=== PATIENT | male | born 1935 | race Caucasian/White ===

== ENCOUNTER 2019-09-10 10:55 | Inpatient (IN) | payer MEDICARE, MEDICAID ==
[~2019-09-10] VITALS: Ht 177.8 cm; Wt 92.5 kg
[2019-09-10 11:29] LABS: BASOPHILS 0.1 % (0-2); EOSINOPHILS 0.7 % (0-7); HEMATOCRIT 38.3 % (42.0-54.0); HEMOGLOBIN 12.1 g/dL (13.5-17.5); IMMATURE GRANULOCYTES 0.2 % (0-5); LYMPHOCYTES 12.6 % (15-50); MCH 21.8 pg (26.0-34.0); MCHC 31.6 g/dL (31.0-37.0); MEAN PLATELET VOLUME 8.3 fL (7.4-10.4); MONOCYTES 13.8 % (2-11); NEUTROPHILS 72.6 % (40-80); PLATELET COUNT 214 10x3/uL (130-400); RBC 5.55 10x6/uL (4.20-6.10); RDW 16.9 % (11.5-14.5)
[2019-09-10 11:44] LABS: CALC OSMOLALITY 278 mosm/kg (275-300); CALCIUM 8.2 mg/dL (8.5-10.1); CARBON DIOXIDE 27.9 mmol/L (21.0-32.0); CHLORIDE - SERUM 101 mmol/L (98-107); CREATININE - SERUM 1.1 mg/dL (0.6-1.3); GLUCOSE 111 mg/dL (74-106); POTASSIUM - SERUM 3.8 mmol/L (3.5-5.1); SODIUM 138 mmol/L (136-145); UREA NITROGEN 19 mg/dL (7-18); eGFR NON AFRICAN AMERICAN 68 mL/min (90-120)
[2019-09-10 12:01] LABS: ALBUMIN 3.3 g/dL (3.4-5.0); ALKALINE PHOSPHATASE 68 U/L (46-116); ALT (SGPT) 15 U/L (10-68); BILIRUBIN - TOTAL 1.07 mg/dL (0.2-1.3); CKMB 0.9 U/L (0.0-3.6); CREATINE KINASE 60 UL (21-232); PROTEIN - SERUM 7.2 g/dL (6.4-8.2); TROPONIN-I < 0.017 ng/mL (0.000-0.060)
[2019-09-10 12:02] LABS: APTT 38.3 SECONDS (22.8-39.4); INR 1.19 (0.85-1.17); PROTIME 14.6 SECONDS (11.6-15.0)
[2019-09-10 12:13] VITALS: BP 116/65
--- NOTE | 2019-09-10 12:40 | NUR ---
TRANSFER FROM ER BY W/C. JEFINTED TO ROOM. CALL LIGHT IN REACH. WILL CONT. PLAN OF CARE.
[2019-09-10] MEDS ORDERED: ELIQUIS2.5 MG PO (13:03)
[2019-09-10] MEDS ORDERED: DURAGESIC1 PATCH .4 TRANSDERM (13:03)
[2019-09-10] MEDS ORDERED: KLONOPIN0.5 MG PO (13:04)
[2019-09-10] MEDS ORDERED: LEXAPRO20 MG PO (13:04)
[2019-09-10] MEDS ORDERED: FUROSEMIDE20 MG PO (13:04)
[2019-09-10] MEDS ORDERED: PROTONIX40 MG PO (13:05)
[2019-09-10] MEDS ORDERED: HYDROCODON-ACE1 EAC2 (13:05)
[2019-09-10] MEDS ORDERED: PLAVIX75 MG PO (13:05)
[2019-09-10] MEDS ORDERED: LEVOTHYROXINE125 MCG PO (13:06)
[2019-09-10 13:11] VITALS: BP 116/65; BMI 34.5
[2019-09-10 16:25] LABS: % SATURATION 9 % (15-55); IRON 20 ug/dl (35-150); TOTAL IRON BIND CAPACITY 218 ug/dl (260-445); UNSAT IRON BIND CAPACITY 198 ug/dl (150-375)
[2019-09-10 17:21] LABS: MAGNESIUM - SERUM 2.2 mg/dL (1.8-2.4)
[2019-09-10 17:47] VITALS: BP 99/48
--- NOTE | 2019-09-10 19:30 | NUR ---
REPORT AND INITIAL ROUNDS COMPLETED. PT RESTING IN BED WITH EYES CLOSED. RESPS EVEN/NONLABORED. NO DISTRESS. PACED ON TELEMETRY. PIV SALINE LOCKED TO RIGHT A/C. FALL PRECAUTIONS IN PLACE. CPOC.
[2019-09-10 20:00] VITALS: BP 112/49
--- NOTE | 2019-09-10 22:44 | NUR ---
RESTING IN BED. 80 PACED PER TELEMETRY. NO DISTRESS. CPOC.
[2019-09-11] VITALS: BP 104/66
--- NOTE | 2019-09-11 01:48 | NUR ---
MORE AWAKE NOW THAT BEGINNING OF SHIFT. PACEMAKER/80 PER TELEMETRY. CARE FOR INCONTINENCE PROVIDED. FALL PRECAUTIONS IN PLACE. CPOC.
[2019-09-11 04:00] VITALS: BP 123/66
[2019-09-11 06:29] LABS: BASOPHILS 0 % (0-2); EOSINOPHILS 0 % (0-7); HEMATOCRIT 37.5 % (42.0-54.0); IMMATURE GRANULOCYTES 0.4 % (0-5); LYMPHOCYTES 5.7 % (15-50); MCV 68.7 fL (80.0-100.0); MEAN PLATELET VOLUME 8.7 fL (7.4-10.4); MONOCYTES 2.3 % (2-11); NEUTROPHILS 91.6 % (40-80); PLATELET COUNT 236 10x3/uL (130-400); RBC 5.46 10x6/uL (4.20-6.10); RDW 16.9 % (11.5-14.5); WBC 14.1 10x3/uL (4.8-10.8)
--- NOTE | 2019-09-11 06:35 | NUR ---
RESTING IN BED WITH NO DISTRESS. INSTRUCTED THAT URINE SPECIMEN IS NEEDED AND FOR PT TO LET STAFF KNOW WHEN HE VOIDS. PT VOICED UNDERSTANDING.
[2019-09-11 06:56] LABS: ALBUMIN 2.8 g/dL (3.4-5.0); BILIRUBIN - TOTAL 0.59 mg/dL (0.2-1.3); CALCIUM 8.7 mg/dL (8.5-10.1); CARBON DIOXIDE 26.2 mmol/L (21.0-32.0); CREATININE - SERUM 1.1 mg/dL (0.6-1.3); MAGNESIUM - SERUM 2.1 mg/dL (1.8-2.4); POTASSIUM - SERUM 4.2 mmol/L (3.5-5.1)
--- NOTE | 2019-09-11 07:15 | NUR ---
ASSESSMENT DONE DENIES NEEDS
[2019-09-11 08:42] VITALS: BP 113/46
[2019-09-11 14:05] VITALS: BP 89/40
--- NOTE | 2019-09-11 16:09 | NUR ---
I have reviewed this patient and I concur with the Shift Assessment completed by the Licensed Practical Nurse today this shift.
[2019-09-11 16:20] VITALS: BP 99/53
--- NOTE | 2019-09-11 19:29 | NUR ---
RECEIVED BEDSIDE REPORT. PATIENT RESTING COMFORTABLY IN BED. RESPIRATIONS ARE EVEN AND UNLABORED. NO S/S DISTRESS. NO C/O PAIN. CALL LIGHT WITHIN REACH. WILL CPOC.
[2019-09-11 20:00] VITALS: BP 133/74
[2019-09-12] VITALS (7 sets, daily range): BP systolic 98–129; BP diastolic 52–96
--- NOTE | 2019-09-12 03:54 | NUR ---
URINE OBTAINED AND TAKEN TO LAB
[2019-09-12 04:00] LABS: APPEARANCE CLEAR (CLEAR); BILIRUBIN NEGATIVE (NEGATIVE); COLOR YELLOW (YELLOW); GLUCOSE 500 mg/dL (NEGATIVE); KETONE NEGATIVE (NEGATIVE); NITRITE NEGATIVE (NEGATIVE); PROTEIN NEGATIVE (NEGATIVE); SPECIFIC GRAVITY 1.015 (1.005-1.020); UROBILINOGEN NORMAL (NORMAL)
[2019-09-12 05:39] LABS: BASOPHILS 0 % (0-2); EOSINOPHILS 0 % (0-7); HEMATOCRIT 36.1 % (42.0-54.0); HEMOGLOBIN 11.3 g/dL (13.5-17.5); IMMATURE GRANULOCYTES 0.2 % (0-5); LYMPHOCYTES 5.7 % (15-50); MCH 21.4 pg (26.0-34.0); MCHC 31.3 g/dL (31.0-37.0); MCV 68.5 fL (80.0-100.0); MEAN PLATELET VOLUME 8.3 fL (7.4-10.4); MONOCYTES 3.9 % (2-11); NEUTROPHILS 90.2 % (40-80); PLATELET COUNT 232 10x3/uL (130-400); RBC 5.27 10x6/uL (4.20-6.10); RDW 16.8 % (11.5-14.5); WBC 15.5 10x3/uL (4.8-10.8)
[2019-09-12 05:58] LABS: ANION GAP 11.2 mmol/L (8-16); CALCIUM 8.7 mg/dL (8.5-10.1); CARBON DIOXIDE 28.4 mmol/L (21.0-32.0); CREATININE - SERUM 1.1 mg/dL (0.6-1.3); MAGNESIUM - SERUM 2.3 mg/dL (1.8-2.4); POTASSIUM - SERUM 4.6 mmol/L (3.5-5.1)
--- NOTE | 2019-09-12 07:39 | NUR ---
RECEIVED PT SITTING ON SIDE OF BED WITH UPD IN PROGRESS AAOX4 AT THIS TIME DENIES ANY NEEDS OR DISCOMFORT OR NEEDS AT THIS TIME
--- NOTE | 2019-09-12 17:05 | NUR ---
OT NOTE: PT C/O DIZZINESS. NURSING AWARE. PT COMPLETED UB HYGIENE AND GROOMING TASKS WITH MIN A. PT COMPLETED EOB SITTING WITH SBA. PT COMPLETED UE AROM EXS. [phone] THANK YOU,MAGEN PALACIOS
--- NOTE | 2019-09-12 20:21 | NUR ---
RECEIVED BEDSIDE REPORT. PATIENT IS ALERT AND ORIENTED, RESTING COMFORTABLY IN BED. RESPIRATIONS ARE EVEN AND UNLABORED. NO S/S OF DISTRESS. NO C/OPAIN. CALL LIGHT WITHIN REACH. WILL CPOC.
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
--- NOTE | 2019-09-13 | NUR ---
PATIENT APPEARS TO BE SLEEPING. RESPIRATIONS ARE EVEN AND UNLABORED. NO S/S OF DISTRESS. NO C/OPAIN. CALL LIGHT WITHIN REACH. WILL CPOC.
--- NOTE | 2019-09-13 03:02 | NUR ---
PATIENT APPEARS TO BE SLEEPING. RESPIRATIONS ARE EVEN AND UNLABORED. NO S/S OF DISTRESS. NO C/OPAIN. CALL LIGHT WITHIN REACH. WILL CPOC.
[2019-09-13 03:50] VITALS: BP 138/68
[2019-09-13 04:00] VITALS: BP 127/68
[2019-09-13 05:30] LABS: BASOPHILS 0 % (0-2); EOSINOPHILS 0 % (0-7); IMMATURE GRANULOCYTES 0.2 % (0-5); LYMPHOCYTES 11.3 % (15-50); MCH 21.6 pg (26.0-34.0); MCHC 31.4 g/dL (31.0-37.0); MCV 68.6 fL (80.0-100.0); MEAN PLATELET VOLUME 8.4 fL (7.4-10.4); MONOCYTES 8.9 % (2-11); NEUTROPHILS 79.6 % (40-80); PLATELET COUNT 220 10x3/uL (130-400); RDW 16.7 % (11.5-14.5)
[2019-09-13 05:54] LABS: WBC 11.4 10x3/uL (4.8-10.8)
[2019-09-13 05:59] LABS: ANION GAP 11.7 mmol/L (8-16); CALCIUM 8.6 mg/dL (8.5-10.1); CARBON DIOXIDE 28.5 mmol/L (21.0-32.0); CREATININE - SERUM 1.1 mg/dL (0.6-1.3); MAGNESIUM - SERUM 2.3 mg/dL (1.8-2.4); POTASSIUM - SERUM 4.2 mmol/L (3.5-5.1)
--- NOTE | 2019-09-13 08:30 | NUR ---
HAS TAKEN HIS OWN HOME MEDS THIS AM. STATES HE HAS NOT DONE THAT PRIOR TO THIS MORNING. EXPLAINED TO HIM NOT TO DO THAT AGAIN, THAT WE WOULD BE GIVING HIS MEDS, AND THAT WE NEEDED TO LOCK UP HIS PILL BOX. STATES HE WILL NOT DO THAT AGAIN AND REFUSES TO LET ME LOCK UP HIS PILL BOX.
--- NOTE | 2019-09-13 09:58 | NUR ---
UP AMBULATING HALLWAY WITH PT ASSIST.
--- NOTE | 2019-09-13 10:10 | NUR ---
DR. PIZANO GAVE ME THE ORDER TO HOLED ELIQUIS AND PLAVIX SO HE COULD HAVE A THORICENTESIS. EXPLAINED TO THE PATEINT THAT WI WERE GOIING TO HOLD THOSE TWO MEDS FOR POSSIBLE PROCEDURE. HE STATES OK. CEREAL CHEMIST NOTIFIED OF PILL BOX IN ROOM AND TOOK OWN MEDS THIS AM. SHE SPEAKS TO HIM AND HE BECOMES ANGRY STATING HE WILL NOT TAKE HES HOME MEDS FROM PILL BOX AND CONT TO REFUSE TO LET US LOCK THEM UP. RANGE AID ALSO NOTIFIED.
[2019-09-13 10:13] VITALS: BP 117/63
--- NOTE | 2019-09-13 11:32 | NUR ---
OT NOTE: PT DOING VERY WELL TODAY. STATED THAT HE FELT BETTER. REPORTED THAT HE FELL LAST NIGHT.. DID NOT REMEMBER IF HE WAS ATTEMPTING TO GO TO BATHROOM OR JUST WHAT HE WAS DOING WHEN HE FELL. PERFORMED BED MOB IWTH MIN ASSIST. ABLE TO WASH FACE, HANDS, AND UPPER BODY WITH WASHCLOTH AND SET UP. MIN ASSIST WITH CLOTHING MGMT; MIN ASSIST TO MAXINE GOWN. SIT TO STAND WITH WALKER AND MIN ASSIST. AMB WITH WALKER APPROX 30 FT TO IMPROVE FUNCTIONAL ENDURANCE. BACK TO BED WITH MIN ASSIST. ANTHONY GRIFFITH, OTR/L [phone]
[2019-09-13 14:25] VITALS: BP 105/52
[2019-09-13 17:05] VITALS: BP 127/73
--- NOTE | 2019-09-13 17:06 | NUR ---
OT NOTE: PT COMPLETED BED MOB WITH MIN A. PT COMPLETED ADL MOB WITH RW WITH CGA. PT COMPLETED HAIR GROOMING WITH SET UP. PT COMPLETED UE AROM AX. [phone] THANK YOU, MAGEN PALACIOS
--- NOTE | 2019-09-13 19:36 | NUR ---
RECEIVED BEDSIDE REPORT. PATIENT IS ALERT AND ORIENTED, RESTING COMFORTABLY IN BED. RESPIRATIONS ARE EVEN AND UNLABORED. NO S/S OF DISTRESS. NO C/O PAIN. CALL LIGHT WITHIN REACH. WILL CPOC.
[2019-09-13 21:48] VITALS: BP 128/74
[2019-09-14 04:30] VITALS: BP 107/57; BP 97/49
[2019-09-14 05:06] LABS: BASOPHILS 0 % (0-2); HEMATOCRIT 36.5 % (42.0-54.0); HEMOGLOBIN 11.3 g/dL (13.5-17.5); IMMATURE GRANULOCYTES 0.3 % (0-5); LYMPHOCYTES 20.7 % (15-50); MCH 21.3 pg (26.0-34.0); MCV 68.9 fL (80.0-100.0); MEAN PLATELET VOLUME 8.6 fL (7.4-10.4); PLATELET COUNT 205 10x3/uL (130-400)
[2019-09-14 05:07] LABS: WBC 7.2 10x3/uL (4.8-10.8)
[2019-09-14 05:30] LABS: CALC OSMOLALITY 283 mosm/kg (275-300); CALCIUM 8.4 mg/dL (8.5-10.1); CARBON DIOXIDE 28.1 mmol/L (21.0-32.0); CHLORIDE - SERUM 105 mmol/L (98-107); GLUCOSE 113 mg/dL (74-106); MAGNESIUM - SERUM 2.4 mg/dL (1.8-2.4); POTASSIUM - SERUM 3.7 mmol/L (3.5-5.1); SODIUM 140 mmol/L (136-145); UREA NITROGEN 25 mg/dL (7-18); eGFR NON AFRICAN AMERICAN 76 mL/min (90-120)
[2019-09-14 09:05] VITALS: BP 110/55
--- NOTE | 2019-09-14 10:31 | NUR ---
INFORMED PT OF NEED FOR STOOL SAMPLE, PROVIDED PT WITH COLLECTION CUP, PT WILL NOTIFY NURSE OR UNIFORMER WHEN SAMPLE IS READY.
--- NOTE | 2019-09-14 14:45 | NUR ---
PT REFUSED UPDRAFT TX
--- NOTE | 2019-09-14 14:48 | NUR ---
PT RESTING COMFORTABLY IN BED, DENIES ANY NEEDS AT THIS TIME. NAD NOTED, CALL LIGHT IN REACH, WILL CONTINUE TO MONIOTOR.
[2019-09-14 16:00] VITALS: BP 112/72
[2019-09-14 18:28] VITALS: BP 125/86
[2019-09-14 20:00] VITALS: BP 107/57
[2019-09-15 00:05] VITALS: BP 94/56
[2019-09-15 04:36] VITALS: BP 116/77
[2019-09-15 05:22] LABS: BASOPHILS 0.1 % (0-2); HEMATOCRIT 40.1 % (42.0-54.0); HEMOGLOBIN 12.8 g/dL (13.5-17.5); IMMATURE GRANULOCYTES 0.7 % (0-5); LYMPHOCYTES 24.3 % (15-50); MCH 21.6 pg (26.0-34.0); MCHC 31.9 g/dL (31.0-37.0); MCV 67.6 fL (80.0-100.0); MEAN PLATELET VOLUME 8.4 fL (7.4-10.4); MONOCYTES 10.4 % (2-11); NEUTROPHILS 62.5 % (40-80); PLATELET COUNT 201 10x3/uL (130-400); RBC 5.93 10x6/uL (4.20-6.10); RDW 16.6 % (11.5-14.5); WBC 7.4 10x3/uL (4.8-10.8)
[2019-09-15 05:31] LABS: ANION GAP 11.7 mmol/L (8-16); CALCIUM 8.7 mg/dL (8.5-10.1); CREATININE - SERUM 1.2 mg/dL (0.6-1.3); MAGNESIUM - SERUM 2.3 mg/dL (1.8-2.4); POTASSIUM - SERUM 3.7 mmol/L (3.5-5.1)
--- NOTE | 2019-09-15 06:00 | NUR ---
PT HAS RESTED THROUGH THE NIGHT. IV TO RIGHT A/C PATENT. IV ABT GIVEN ORDERED. NO DISTRESS. NO CHANGE FROM INITIAL SHIFT ASSESSMENT. REPORT TO ONCOMING NURSE. CPOC.
[2019-09-15 08:19] VITALS: BP 111/80
--- NOTE | 2019-09-15 08:31 | NUR ---
AM MEDS GIVEN AT THIS TIME. PT UP TO SIDE OF BED, EATING BREAKFAST, DENIES ANY NEEDS AT THIS TIME. RT UPPER ARM IV SL. CALL LIGHT IN REACH, NAD NOTED, WILL CONTINUE TO MONITOR.
[2019-09-15 11:48] VITALS: BP 119/71
[2019-09-15 16:44] VITALS: BP 102/66
--- NOTE | 2019-09-15 18:27 | NUR ---
RT UPPER IV LEAKING. D/C IV WITH CATHETER TIP INTACT. X1 ATTEMPT TO START NEW IV, WAS UNSUCCESSFUL. WILL HAVE CHARGE NURSE TRY AND START NEW IV.
--- NOTE | 2019-09-15 19:20 | NUR ---
RECEIVED REPORT, WILL ASSUME CARE OF PT, DENIES ANY NEEDS AT THIS TIME, IV-INFUSING IRON, WHEN DONE WILL HANG CLEOCIN,WILL KEEP NPO AFTER MIDNIGHT FOR POSSIABLE THORACENTESIS, BED IS LOW, SRX2, CALL LIGHT IN REACH, WILL CONTINUE PLAN OF CARE
[2019-09-15 20:00] VITALS: BP 125/67
[2019-09-16 04:00] VITALS: BP 92/52
[2019-09-16 06:42] LABS: BASOPHILS 0.2 % (0-2); EOSINOPHILS 2.3 % (0-7); HEMATOCRIT 42.2 % (42.0-54.0); HEMOGLOBIN 13.7 g/dL (13.5-17.5); IMMATURE GRANULOCYTES 1.3 % (0-5); LYMPHOCYTES 22.4 % (15-50); MCHC 32.5 g/dL (31.0-37.0); MCV 67.7 fL (80.0-100.0); MEAN PLATELET VOLUME 8.6 fL (7.4-10.4); MONOCYTES 12.2 % (2-11); NEUTROPHILS 61.6 % (40-80); RBC 6.23 10x6/uL (4.20-6.10)
[2019-09-16 06:47] LABS: PLATELET COUNT 244 10x3/uL (130-400); WBC 9.4 10x3/uL (4.8-10.8)
--- NOTE | 2019-09-16 07:15 | NUR ---
ASSESSMENT DONE. DENIES NEEDS
[2019-09-16 07:37] LABS: INR 1.12 (0.85-1.17); PROTIME 13.9 SECONDS (11.6-15.0)
[2019-09-16 07:57] LABS: ANION GAP 13.4 mmol/L (8-16); CALCIUM 8.5 mg/dL (8.5-10.1); CARBON DIOXIDE 30.2 mmol/L (21.0-32.0); CREATININE - SERUM 1.3 mg/dL (0.6-1.3); POTASSIUM - SERUM 3.6 mmol/L (3.5-5.1)
--- NOTE | 2019-09-16 08:04 | NUR ---
TO IR PER BED
--- NOTE | 2019-09-16 08:30 | NUR ---
RETURN FROM IR. PROCEDURE NOT DONE, NO FLUID ON LUNGS
--- NOTE | 2019-09-16 09:51 | NUR ---
I have reviewed this patient and I concur with the Shift Assessment completed by the Licensed Practical Nurse today this shift.
[2019-09-16 12:10] VITALS: BP 106/65
--- NOTE | 2019-09-16 12:53 | NUR ---
OT NOTE: ATTEMPTED TO SEE PT IN AM, HOWEVER, REFUSED STATING THAT HE WAS NOT DONE WITH BREAKFAST, EVEN THOUGH THERE WAS NOTHING IN THE BOWL THAT HE WAS ATTEPTING TO EAT FROM. DURING SECOND ATTEMPT, PT WAS LIEING IN BED. PERFORMED SUPINE TO SIT WITHOUT ASSIST; GOOD STATIC BALANCE WHILE ON EOB. ABLE TO MAXINE SOCKS AND SHOES WITH SET UP WITHOUT DIFFICULTY BUT WITH EXT TIME. SIT TO STAND WITH MIN ASSIST; IN ROOM AMBULATION WITH WALKER AND CGA. PT FATIGUED MORE QUICKLY TODAY THAN PREVIOUS DAYS. DID NOT WANT TO SIT UP IN CHAIR BUT AGREEABLE TO SIT ON EOB. ANTHONY GRIFFITH, OTR/L [phone]
--- NOTE | 2019-09-16 14:27 | NUR ---
OT NOTE: PT REQUIRED MODERATED CUES FOR INCREASED PARTICIPATION. PT COMPLETED SIT TOS STAND WITH CGA. PT COMPLETED ADL MOB WITH RW WITH CGA. PT REQUIRED FREQUENT REST BREAKS. PT COMPLETED BUE AROM EXS AT EOB NOT EXCEEDING 90 DEGREES OF FLEXION. PT COMPLETED FACE WASH WITH SET UP AT EOB. [phone] THANK YOU,MAGEN PALACIOS
[2019-09-16 14:45] VITALS: Ht 177.8 cm; Wt 92.5 kg
--- NOTE | 2019-09-16 17:21 | NUR ---
WITHOUT CHANGES OR DISTRESS NOTED AT THIS TIME DENIES NEEDS
[2019-09-16 17:56] VITALS: BP 84/57
--- NOTE | 2019-09-16 19:20 | NUR ---
ASSESSMENT COMPLETE, PT A&O. RESPERTIONS PAULO WILL. IV TO RIGHT UPPER ARM SL, SITE CLEAN AND DRY. PT DENIES PAIN OR NEEDS, BED LOW, CL IN REACH.
[2019-09-16 20:00] VITALS: BP 108/52
[2019-09-17 00:33] VITALS: BP 95/59
--- NOTE | 2019-09-17 01:18 | NUR ---
I have reviewed this patient and I concur with the Shift Assessment completed by the Licensed Practical Nurse today this shift.
--- NOTE | 2019-09-17 03:50 | NUR ---
STRAW HAT BRIM RAISER OPERATOR AT BED SIDE, OFFERED PT A BATH, PT DECLINED AT THIS TIME.
[2019-09-17 04:00] VITALS: BP 105/53
--- NOTE | 2019-09-17 07:16 | NUR ---
ASSESSMENT DONE. DENIES NEEDS
[2019-09-17 08:17] VITALS: BP 97/77
--- NOTE | 2019-09-17 09:16 | NUR ---
I have reviewed this patient and I concur with the Shift Assessment completed by the Licensed Practical Nurse today this shift.
[2019-09-17 12:00] VITALS: BP 99/51
[2019-09-17] MEDS ORDERED: ZITHROMAX250 MG PO (12:48)
[2019-09-17] MEDS ORDERED: OMNICEF300 MG PO (12:49)
[2019-09-17] MEDS ORDERED: ALDACTONE25 MG PO (12:49)
[2019-09-17] MEDS ORDERED: FLORAJEN3 CAPS460 MG PO (12:49)
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
--- NOTE | 2019-09-17 14:41 | MORECARE ---
CASE MANAGEMENT DISCHARGE SUMMARY PATIENT: MALACHI ALVAREZ UNIT: [id number] ADM DATE: 09/10/19 AGE: 83 : 36 SEX: M ROOM/BED: D.2120 AUTHOR: ARNULFO SAMPSON PHYSICIAN: REFERRING PHYSICIAN: GIANFRANCO DILLARD MD DATE OF SERVICE: 09/17/19 Discharge Plan Patient Name: MALACHI ALVAREZ Facility: [facility]:[place] : 1935 Planned Disposition: Home Anticipated Discharge Date: 09/17/19 Discharge Date: Expected LOS: 7 Initial Reviewer: [id number] Initial Review Date: 09/17/2019 Generated: 09/17/19 3:41 pm Coverage Notice Reviewer: [id number] Huey Simon Notice Issued Date-Time: 09/17/2019 9:05 Notice Type: IM Discharge Notice Notice Delivered To: Patient Relationship to Patient: Event Organizer Name: Delivery Method: HAND - Hand Delivered Margaux Days: Prior Verbal Notification: Recipient Understood Notice: Yes Recipient Signature: Yes Med Rec Note Co-signed by Attending: Coverage Notice Comment: Patient Name: MALACHI ALVAREZ Page [phone] at 1441 All edits/amendments must be made on the electronic document DICTATION DATE: 09/17/19 1441 TEAM FACILITATOR: MAHAD 09/17/19 1441 RPT#: [id number] DC DATE: STATUS: ADM IN [facility] [address] [place] [address] END OF REPORT
--- NOTE | 2019-09-17 14:51 | MORECARE ---
CASE MANAGEMENT DISCHARGE SUMMARY PATIENT: MALACHI ALVAREZ UNIT: [id number] ADM DATE: 09/10/19 AGE: 83 : 36 SEX: M ROOM/BED: D.2120 AUTHOR: ARNULFO SAMPSON PHYSICIAN: REFERRING PHYSICIAN: GIANFRANCO DILLARD MD DATE OF SERVICE: 09/17/19 Discharge Plan Patient Name: MALACHI ALVAREZ Facility: [facility] : 1935 Planned Disposition: Home Anticipated Discharge Date: 09/17/19 Discharge Date: Expected LOS: 7 Initial Reviewer: [id number] Initial Review Date: 09/17/2019 Generated: 09/17/19 3:50 pm DCPIA - Discharge Planning Initial Assessment Updated by [email or web address]: Joao Simon on 09/17/19 2:45 pm * Is the patient Alert and Oriented? Yes * How many steps to enter\exit or inside your home? ELEVATOR * PCP DR. KEVIN * Pharmacy [facility] * Preadmission Environment Home Alone * ADLs Independent * Equipment Cane Rolling Walker * Other Equipment NO MEDICAL EQUIPMENT PROVIDER PREFERENCE * List name and contact numbers for known caregivers / representatives who currently or will assist patient after discharge: TRISHA CAITLIN, FRIEND, * Verbal permission to speak to the caregivers and representatives has been obtained from the patient. N/A * Community resources currently utilized None * Please name any agencies selected above. NONE * Additional services required to return to the preadmission environment? No * Can the patient safely return to the preadmission environment? Yes * Has this patient been hospitalized within the prior 30 days at any hospital? No Coverage Notice Reviewer: [id number] - Joao Simon Notice Issued Date-Time: 09/17/2019 9:05 Notice Type: IM Discharge Notice Notice Delivered To: Patient Relationship to Patient: Public Service Administrator Name: Delivery Method: HAND - Hand Delivered Margaux Days: Prior Verbal Notification: Recipient Understood Notice: Yes Recipient Signature: Yes Med Rec Note Co-signed by Attending: Coverage Notice Comment: Last DP export: 09/17/19 1:41 Patient Name: MALACHI ALVAREZ Page [phone] at 1451 All edits/amendments must be made on the electronic document DICTATION DATE: 09/17/191449 COCOA BEAN ROASTER HELPER: MAHAD 09/17/191449 RPT#: [id number] DC DATE: STATUS: ADM IN [facility] [address] [place] [address] END OF REPORT
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
--- NOTE | 2019-09-17 15:15 | NUR ---
DC HOME PER SCAT VAN
--- NOTE | 2019-09-17 16:04 | NUR ---
OT NOTE: PT COMPLETED SUPINE TO SIT WITH CGA. PT COMPLETED SIT TO STAND WITH CGA. PT COMPLETED ADL MOB WITH CGA. PT COMPLETED BUE AROM AXS AT EOB. PT COMPLETED FACE WASH WITH SET UP. [phone] THANK YOU, MAGEN PALACIOS
== END 2019-09-17 15:15 | disposition home or self-care (01) | DRG 291 ==
LOC: D.ER 10:55 → EDBD 11:40 → D.M2 11:40
PROVIDERS: Family Medicine; Specialist; ADMIT Internal Medicine Nephrology; ATTEND Internal Medicine Nephrology
DX: I50.31 Acute diastolic (congestive) heart failure (principal); J18.9 Pneumonia, unspecified organism; I25.10 Atherosclerotic heart disease of native coronary artery without angina pectoris; Z95.0 Presence of cardiac pacemaker; D50.9 Iron deficiency anemia, unspecified; E03.9 Hypothyroidism, unspecified